=== PATIENT | male | born 1955 | race Caucasian/White ===

== ENCOUNTER 2018-11-17 08:40 | Inpatient (IN) | payer OTHER ==
--- OUTSIDE RECORDS SUMMARY | 2018-11-17 08:41 | XMS REPORT | Clinical Summary ---
:1955 Author Organization [facility] Address [address] [place] [address] Care Team Providers Name Role Phone Jorden Cohen MD Primary Care Provider Allergies Active Allergy Reactions Severity Noted Date Comments Iodine Rash Low 08/17/2016 Around age 20 I had welps from Iodine, but have had many tests done since then with no reaction to Iodine. Penicillins Rash Medium 08/17/2016 Medications Medication Sig Dispensed Refills Start Date End Date Status furosemide (LASIX) 20 mg Take 20 mg by 0 Active tablet mouth 2 (two) times a day. levothyroxine Take 25 mcg by 0 Active (SYNTHROID, LEVOXYL) 25 mouth every mcg tablet morning. spironolactone Take 25 mg by 0 Active (ALDACTONE) 25 MG tablet mouth daily. glimepiride (AMARYL) 2 Take 2 mg by 0 Active MG tablet mouth daily before breakfast. simvastatin (ZOCOR) 20 Take 20 mg by 0 Active MG tablet mouth nightly. tamsulosin (FLOMAX) 0.4 Take 0.4 mg by 0 Active mg capsule,extended mouth 2 (two) release 24hr times a day. aspirin (ECOTRIN) 81 MG Take 81 mg by 0 Active enteric coated tablet mouth daily. DOCOSAHEXANOIC ACID/EPA Take 1,200 mg by 0 Active (FISH OIL ORAL) mouth daily. insulin GLARGINE Inject 40 Units 0 Active (LANTUS) 100 unit/mL under the skin injection (vial) nightly. MILK THISTLE ORAL Take 1 tablet by 0 Active mouth daily. Active Problems Not on file Social History Tobacco Use Types Packs/Day Years Used Date Never Assessed Sex Assigned at Date Recorded Not on file Job Start Date Occupation Industry Not on file Not on file Not on file Travel History Travel Start Travel End No recent travel history available. Last Filed Vital Signs Not on file Plan of Treatment Health Maintenance Due Date Last Done Comments COLONOSCOPY SCREENING 01/23/2006 SHINGLES VACCINES (#1) 01/23/2006 INFLUENZA VACCINE 10/24/2018 Results Not on fileafter 11/16/2017 Advance Directives For more information, please contact: [phone] Type Date Recorded Patient Dip Filler Explanation Advance Directives, Living 08/23/2016 8:10 AM Does not have AD Will and Medical Power of Windows Server Administrator
[2018-11-17] MEDS ORDERED: NA CHLORIDE 0.9% 1,000 ML ONE (08:54)
[2018-11-17] MEDS ORDERED: ASPIRIN 81 MG CHEWABLE TABLET ONE (09:12)
[2018-11-17] MEDS ORDERED: ONDANSETRON 4 MG/2 ML VIAL ONE (09:13)
[2018-11-17] MEDS ORDERED: ENOXAPARIN 100 MG/ML SYR SQ ONE (09:13)
[2018-11-17] MEDS ORDERED: MORPHINE 4 MG/ML SYR ONE (09:13)
[2018-11-17] MEDS ORDERED: METOPROLOL TAR 25 MG TAB ONE (09:13)
--- NOTE | 2018-11-17 09:13 | ER ---
Nurse's Notes [facility] Name: Ovidio Johnston Age: 63 yrs Sex: Male : 1955 Arrival Date: 11/17/2018 Time: 08:41 Bed 17 Private MD: Jorden Cohen R Diagnosis: Chest pain, unspecified;Essential (primary) hypertension;Type 2 diabetes mellitus;Tobacco abuse counseling;Tobacco use;Alcohol abuse, uncomplicated Presentation: 11/17 08:49 Presenting complaint: Patient states: chest pain that began at 0630 this morning. ss Transition of care: patient was not received from another setting of care. Onset of symptoms was November 17, 2018. Risk Assessment: Do you want to hurt yourself or someone else? Patient reports no desire to harm self or others. Initial Sepsis Screen: Does the patient meet any 2 criteria? No. Patient's initial sepsis screen is negative. Does the patient have a suspected source of infection? No. Patient's initial sepsis screen is negative. Care prior to arrival: None. 08:49 Method Of Arrival: Ambulatory ss 08:49 Acuity: LIT 3 ss Historical: - Allergies: 08:56 PENICILLINS; ss - Home Meds: 08:56 levothyroxine 25 mcg tab 1 tab once daily [Active]; simvastatin 20 mg Oral tab 1 tab ss once daily [Active]; spironolactone 25 mg Oral tab 1 tab once daily [Active]; furosemide 20 mg Oral tab 1 tab once daily [Active]; tamsulosin 0.4 mg oral cp24 1 cap once daily [Active]; Lantus 100 unit/mL Sub-Q soln 50 unit daily [Active]; omeprazole 20 mg Oral cpDR 1 cap once daily [Active]; - PMHx: 08:56 Hypertension; Diabetes - IDDM; High Cholesterol; ss 08:57 early stage cirrhosis; ss - Immunization history:: Adult Immunizations up to date. - Social history:: Smoking status: Patient uses tobacco products, smokes one pack cigarettes per day. - Ebola Screening: : Patient denies exposure to infectious person Patient denies travel to an Ebola-affected area in the 21 days before illness onset. - Family history:: not pertinent. Screenin:39 Abuse screen: Denies threats or abuse. Denies injuries from another. Nutritional ss screening: No deficits noted. Tuberculosis screening: Never had TB. Fall Risk None identified. Assessment: 09:15 General: Appears in no apparent distress. comfortable, Behavior is calm, cooperative, em Denies fever. Pain: Complains of pain in anterior aspect of left upper chest Pain radiates to left arm Pain currently is 8 out of 10 on a pain scale. Quality of pain is described as dull, Pain began 2 hours ago. Neuro: Level of Consciousness is awake, alert, obeys commands, Oriented to person, place, time, situation. Cardiovascular: Reports chest pain, shortness of breath, Heart tones S1 S2 present Capillary refill < 3 seconds Patient's skin is warm and dry. Rhythm is sinus rhythm. Respiratory: Reports shortness of breath at rest Airway is patent Respiratory effort is even, unlabored, Respiratory pattern is regular, symmetrical, Breath sounds are clear bilaterally. GI: Patient currently denies nausea, vomiting. Derm: Skin is intact, is healthy with good turgor, Skin is pink, warm \T\ dry. Musculoskeletal: Capillary refill < 3 seconds, Range of motion: intact in all extremities. 09:20 General: The previous assessment is accurate, call light remains within reach. . ss 09:38 Reassessment: Dr. Herndon notified of critical lab value. Glucose 478. ss 10:14 Reassessment: Patient appears in no apparent distress at this time. Patient and/or em family updated on plan of care and expected duration. Pain level reassessed. Patient is alert, oriented x 3, equal unlabored respirations, skin warm/dry/pink. rates pain 3/10 Patient states feeling better. 11:30 Reassessment: Patient appears in no apparent distress at this time. Patient and/or em family updated on plan of care and expected duration. Pain level reassessed. Patient is alert, oriented x 3, equal unlabored respirations, skin warm/dry/pink. pending room assignment Patient states feeling better. 12:30 Reassessment: Patient appears in no apparent distress at this time. Patient and/or em family updated on plan of care and expected duration. Pain level reassessed. Patient is alert, oriented x 3, equal unlabored respirations, skin warm/dry/pink. lunch tray given, tolerated well. 14:12 Reassessment: nurse currently unavailable for report. em Vital Signs: 08:58 BP 163 / 81; Pulse 69; Resp 17; Temp 98.1(TE); Pulse Ox 99% on R/A; Weight 95.25 kg; ss Height 5 ft. 6 in. (167.64 cm); Pain 8/10; 09:30 BP 149 / 75; Pulse 72; Resp 20; Pulse Ox 97% on R/A; Pain 8/10; em 10:38 BP 137 / 77; Pulse 61; Resp 16; Pulse Ox 95% on R/A; Pain 3/10; em 12:30 BP 154 / 89; Pulse 68; Resp 18; Pulse Ox 99% on R/A; Pain 2/10; em 14:33 BP 110 / 75; Pulse 78; Resp 18; Temp 98.2(O); Pulse Ox 97% on R/A; Pain 1/10; em 08:58 Body Mass Index 33.89 (95.25 kg, 167.64 cm) ss ED Course: 08:41 Patient arrived in ED. as 08:42 Jorden Cohen MD is Private Physician. as 08:43 Troy Herndon MD is Attending Physician. fabiana 08:52 Rudy Giron LVN is Primary Nurse. em 08:53 Triage completed. ss 08:57 Arm band placed on right wrist. ss 09:05 Initial lab(s) drawn, by me, sent to lab. EKG done, by ED staff, reviewed by Troy [email or web address] Yanick TURNER. Inserted saline lock: 20 gauge in right antecubital area, using aseptic technique. Blood collected. 09:12 Jorden Cohen MD is Hospitalizing Provider. fabiana 09:39 Patient has correct armband on for positive identification. Placed in gown. Bed in low ss position. Call light in reach. Side rails up X 1. monitoring and evaluation advisor on. Pulse ox on. NIBP on. 09:39 Patient maintains SpO2 saturation greater than 95% on room air. ss 14:32 No provider procedures requiring assistance completed. Patient admitted, IV remains in em place. Administered Medications: 09:28 Drug: Aspirin 162 mg Route: PO; ss 10:06 Follow up: Response: No adverse reaction em 09:28 Drug: Lopressor (metoprolol TARTRATE) 50 mg Route: PO; ss 10:11 Follow up: Response: No adverse reaction em 09:30 Drug: NS 0.9% 1000 ml Route: IV; Rate: 125 ml/hr; Site: right antecubital; ss 14:34 Follow up: IV Status: Infusion continued upon admission; IV Intake: 600ml em 09:30 Drug: Zofran 4 mg Route: IVP; Site: right antecubital; ss 10:06 Follow up: Response: No adverse reaction em 09:33 Drug: morphine 4 mg Route: IVP; Site: right antecubital; ss 10:10 Follow up: Response: No adverse reaction; Marked relief of symptoms; Pain is decreased; em RASS: Alert and Calm (0) 09:36 Drug: Pepcid 20 mg Route: IVP; Site: right antecubital; ss 10:11 Follow up: Response: No adverse reaction em 09:36 Drug: Lovenox 100 mg Route: Sub-Q; Site: left lower abdomen; ss 10:06 Follow up: Response: No adverse reaction em 09:39 CANCELLED (Duplicate Order): Lovenox 1 mg/kg Sub-Q once fabiana 09:50 Drug: Insulin Regular Human 10 units {Co-Signature: contreras (Rudy Giron BANK MESSENGER).} Route: IVP; ss Site: right antecubital; 11:41 Follow up: Response: No adverse reaction; Blood pressure is lowered em 09:52 Drug: Thiamine 100 mg Route: IV; Rate: bolus; Site: right antecubital; ss 11:41 Follow up: Response: No adverse reaction em 09:58 Drug: Insulin Regular Human 10 units {Co-Signature: contreras Giron BANK MESSENGER).} Route: ss Sub-Q; Site: right lower abdomen; 11:41 Follow up: Response: No adverse reaction; Blood sugar is lowered em Point of Care Testing: Blood Glucose: 11:19 Blood Glucose: 248 mg/dL; em1 14:33 Blood Glucose: 277 mg/dL; em Ranges: Intake: 14:34 IV: 600ml; Total: 600ml. em Outcome: 09:12 Decision to Hospitalize by Provider. fabiana 14:32 Admitted to Tele accompanied by tech, family with patient, via wheelchair, room 208. em 14:32 Condition: good 14:32 Instructed on the need for admit, Demonstrated understanding of instructions. 14:34 Patient left the ED. em Signatures: Troy Herndon MD MD cha Munoz, Edgar, LVN BANK MESSENGER em Tita Keith Eric em1 Flaca Laguerre, RN RN Rudy Giron BANK MESSENGER em Corrections: (The following items were deleted from the chart) 09:39 09:38 Lovenox 1 mg/kg Sub-Q in left upper abdomen [facility]
[2018-11-17] MEDS ORDERED: FAMOTIDINE 20 MG/2 ML VIAL IV ONE (09:14)
--- NOTE | 2018-11-17 09:14 | EDPHYS ---
Physician Documentation [facility] Name: Ovidio Johnston Age: 63 yrs Sex: Male : 1955 Arrival Date: 11/17/2018 Time: 08:41 Bed 17 Private MD: Jorden Cohen R ED Physician Troy Herndon HPI: 11/17 09:09 This 63 yrs old Male presents to ER via Ambulatory with complaints of Chest fabiana Pain. 09:09 This 63 yrs old Male presents to ER via Ambulatory with complaints of Chest fabiana Pain. 09:09 The patient or guardian reports chest pain that is located primarily in the substernal fabiana area. Onset: 2 hour(s) ago. The pain radiates to the left arm. Associated signs and symptoms: The patient has no apparent associated signs or symptoms. The chest pain is described as a heaviness, a pressure. Modifying factors: The symptoms are alleviated by nothing. the symptoms are aggravated by nothing. Severity of pain: At its worst the pain was moderate in the emergency department the pain is unchanged. Historical: - Allergies: 08:56 PENICILLINS; ss - Home Meds: 08:56 levothyroxine 25 mcg tab 1 tab once daily [Active]; simvastatin 20 mg Oral tab 1 tab ss once daily [Active]; spironolactone 25 mg Oral tab 1 tab once daily [Active]; furosemide 20 mg Oral tab 1 tab once daily [Active]; tamsulosin 0.4 mg oral cp24 1 cap once daily [Active]; Lantus 100 unit/mL Sub-Q soln 50 unit daily [Active]; omeprazole 20 mg Oral cpDR 1 cap once daily [Active]; - PMHx: 08:56 Hypertension; Diabetes - IDDM; High Cholesterol; ss 08:57 early stage cirrhosis; ss - Immunization history:: Adult Immunizations up to date. - Social history:: Smoking status: Patient uses tobacco products, smokes one pack cigarettes per day. - Ebola Screening: : Patient denies exposure to infectious person Patient denies travel to an Ebola-affected area in the 21 days before illness onset. - Family history:: not pertinent. ROS: 09:09 Constitutional: Negative for fever, chills, and weight loss, Eyes: Negative for injury, fabiana pain, redness, and discharge, ENT: Negative for injury, pain, and discharge, Neck: Negative for injury, pain, and swelling, Respiratory: Negative for shortness of breath, cough, wheezing, and pleuritic chest pain, Abdomen/GI: Negative for abdominal pain, nausea, vomiting, diarrhea, and constipation, Back: Negative for injury and pain, : Negative for injury, bleeding, discharge, and swelling, MS/Extremity: Negative for injury and deformity, Skin: Negative for injury, rash, and discoloration, Neuro: Negative for headache, weakness, numbness, tingling, and seizure, Psych: Negative for depression, anxiety, suicide ideation, homicidal ideation, and hallucinations, Allergy/Immunology: Negative for hives, rash, and allergies, Endocrine: Negative for neck swelling, polydipsia, polyuria, polyphagia, and marked weight changes, Hematologic/Lymphatic: Negative for swollen nodes, abnormal bleeding, and unusual bruising. 09:09 Cardiovascular: Positive for chest pain. Exam: 09:09 Constitutional: This is a well developed, well nourished patient who is awake, alert, fabiana and in no acute distress. Head/Face: Normocephalic, atraumatic. Eyes: Pupils equal round and reactive to light, extra-ocular motions intact. Lids and lashes normal. Conjunctiva and sclera are non-icteric and not injected. Cornea within normal limits. Periorbital areas with no swelling, redness, or edema. ENT: Nares patent. No nasal discharge, no septal abnormalities noted. Tympanic membranes are normal and external auditory canals are clear. Oropharynx with no redness, swelling, or masses, exudates, or evidence of obstruction, uvula midline. Mucous membranes moist. Neck: Trachea midline, no thyromegaly or masses palpated, and no cervical lymphadenopathy. Supple, full range of motion without nuchal rigidity, or vertebral point tenderness. No Meningismus. Chest/axilla: Normal chest wall appearance and motion. Nontender with no deformity. No lesions are appreciated. Cardiovascular: Regular rate and rhythm with a normal S1 and S2. No gallops, murmurs, or rubs. Normal PMI, no JVD. No pulse deficits. Respiratory: Lungs have equal breath sounds bilaterally, clear to auscultation and percussion. No rales, rhonchi or wheezes noted. No increased work of breathing, no retractions or nasal flaring. Abdomen/GI: Soft, non-tender, with normal bowel sounds. No distension or tympany. No guarding or rebound. No evidence of tenderness throughout. Back: No spinal tenderness. No costovertebral tenderness. Full range of motion. Male : Normal genitalia with no discharge or lesions. Skin: Warm, dry with normal turgor. Normal color with no rashes, no lesions, and no evidence of cellulitis. MS/ Extremity: Pulses equal, no cyanosis. Neurovascular intact. Full, normal range of motion. Neuro: Awake and alert, GCS 15, oriented to person, place, time, and situation. Cranial nerves II-XII grossly intact. Motor strength 5/5 in all extremities. Sensory grossly intact. Cerebellar exam normal. Normal gait. Psych: Awake, alert, with orientation to person, place and time. Behavior, mood, and affect are within normal limits. Vital Signs: 08:58 BP 163 / 81; Pulse 69; Resp 17; Temp 98.1(TE); Pulse Ox 99% on R/A; Weight 95.25 kg; ss Height 5 ft. 6 in. (167.64 cm); Pain 8/10; 09:30 BP 149 / 75; Pulse 72; Resp 20; Pulse Ox 97% on R/A; Pain 8/10; em 10:38 BP 137 / 77; Pulse 61; Resp 16; Pulse Ox 95% on R/A; Pain 3/10; em 12:30 BP 154 / 89; Pulse 68; Resp 18; Pulse Ox 99% on R/A; Pain 2/10; em 14:33 BP 110 / 75; Pulse 78; Resp 18; Temp 98.2(O); Pulse Ox 97% on R/A; Pain 1/10; em 08:58 Body Mass Index 33.89 (95.25 kg, 167.64 cm) MDM: 08:43 Patient medically screened. [facility] 09:11 Data reviewed: vital signs, nurses notes, lab test result(s), EKG, radiologic studies, fabiana plain films. 11/17 08:44 Order name: Basic Metabolic Panel; Complete Time: 09:40 [facility] 11/17 08:44 Order name: CBC with Diff; Complete Time: 09:40 [facility] 11/17 08:44 Order name: LFT's; Complete Time: 09:40 [facility] 11/17 08:44 Order name: Magnesium; Complete Time: 09:40 [facility] 11/17 08:44 Order name: NT PRO-BNP; Complete Time: 09:40 [facility] 11/17 08:44 Order name: PT-INR; Complete Time: 09:40 [facility] 11/17 08:44 Order name: Troponin (emerg Dept Use Only); Complete Time: 09:40 [facility] 11/17 08:44 Order name: XRAY Chest (1 view) [facility] 11/17 08:44 Order name: Lipase; Complete Time: 09:40 [facility] 11/17 09:09 Order name: ETOH Level [facility] 11/17 11:48 Order name: RAD [facility] 11/17 12:20 Order name: Urine Dipstick--Ancillary (enter results) 11/17 08:44 Order name: EKG; Complete Time: 08:46 [facility] 11/17 08:44 Order name: Cardiac monitoring; Complete Time: 08:49 [facility] 11/17 08:44 Order name: EKG - Nurse/Tech; Complete Time: 08:49 [facility] 11/17 08:44 Order name: IV Saline Lock; Complete Time: 09:05 [facility] 11/17 08:44 Order name: Labs collected and sent; Complete Time: 09:05 [facility] 11/17 09:19 Order name: CONS Physician Consult [facility] 11/17 10:58 Order name: Diet Heart Healthy; Complete Time: 10:59 11/17 08:44 Order name: O2 Per Protocol; Complete Time: 08:49 [facility] 11/17 08:44 Order name: O2 Sat Monitoring; Complete Time: 08:49 [facility] 11/17 08:44 Order name: Urine Dipstick-Ancillary (obtain specimen); Complete Time: 13:10 [facility] Administered Medications: 09:28 Drug: Aspirin 162 mg Route: PO; ss 10:06 Follow up: Response: No adverse reaction em 09:28 Drug: Lopressor (metoprolol TARTRATE) 50 mg Route: PO; ss 10:11 Follow up: Response: No adverse reaction em 09:30 Drug: NS 0.9% 1000 ml Route: IV; Rate: 125 ml/hr; Site: right antecubital; ss 14:34 Follow up: IV Status: Infusion continued upon admission; IV Intake: 600ml em 09:30 Drug: Zofran 4 mg Route: IVP; Site: right antecubital; ss 10:06 Follow up: Response: No adverse reaction em 09:33 Drug: morphine 4 mg Route: IVP; Site: right antecubital; ss 10:10 Follow up: Response: No adverse reaction; Marked relief of symptoms; Pain is decreased; em RASS: Alert and Calm (0) 09:36 Drug: Pepcid 20 mg Route: IVP; Site: right antecubital; ss 10:11 Follow up: Response: No adverse reaction em 09:36 Drug: Lovenox 100 mg Route: Sub-Q; Site: left lower abdomen; ss 10:06 Follow up: Response: No adverse reaction em 09:39 CANCELLED (Duplicate Order): Lovenox 1 mg/kg Sub-Q once fabiana 09:50 Drug: Insulin Regular Human 10 units {Co-Signature: em (Rudy Giron WRISTER).} Route: IVP; ss Site: right antecubital; 11:41 Follow up: Response: No adverse reaction; Blood pressure is lowered em 09:52 Drug: Thiamine 100 mg Route: IV; Rate: bolus; Site: right antecubital; ss 11:41 Follow up: Response: No adverse reaction em 09:58 Drug: Insulin Regular Human 10 units {Co-Signature: em (Rudy Giron WRISTER).} Route: ss Sub-Q; Site: right lower abdomen; 11:41 Follow up: Response: No adverse reaction; Blood sugar is lowered em Point of Care Testing: Blood Glucose: 11:19 Blood Glucose: 248 mg/dL; em1 14:33 Blood Glucose: 277 mg/dL; em Ranges: Critical Glucose Levels:Adult <50 mg/dl or >400 mg/dl <40 mg/dl or >180 mg/dl Disposition: 11/17/18 09:12 Hospitalization ordered by Jorden Cohen for Observation. Preliminary diagnosis are Chest pain, unspecified, Essential (primary) hypertension, Type 2 diabetes mellitus, Tobacco abuse counseling, Tobacco use, Alcohol abuse, uncomplicated. - Bed requested for Telemetry/MedSurg (observation). - Status is Observation. em - Condition is Fair. - Problem is new. - Symptoms have improved. UTI on Admission? No Signatures: Dispatcher [employer] Troy Martin MD MD cha Munoz, Edgar, LVN WRISTER em Flaca Laguerre RN RN Rudy RAMIREZN em Corrections: (The following items were deleted from the chart) 09:12 09:12 Hospitalization Ordered by Jorden Cohen MD for Inpatient Admission. Preliminary fabiana diagnosis is Chest pain, unspecified; Essential (primary) hypertension; Type 2 diabetes mellitus; Tobacco abuse counseling; Tobacco use. Bed requested for Telemetry/MedSurg (observation). Status is Inpatient Admission. Condition is Fair. Problem is new. Symptoms have improved. UTI on Admission? No. fabiana 09:21 09:12 11/17/2018 09:12 Hospitalization Ordered by Jorden Cohen MD for Observation. fabiana Preliminary diagnosis is Chest pain, unspecified; Essential (primary) hypertension; Type 2 diabetes mellitus; Tobacco abuse counseling; Tobacco use. Bed requested for Telemetry/MedSurg (observation). Status is Observation. Condition is Fair. Problem is new. Symptoms have improved. UTI on Admission? No. fabiana 09:39 09:09 Lovenox 1 mg/kg Sub-Q once ordered. fabiana fabiana 09:39 09:39 Lovenox 1 mg/kg Sub-Q once ordered. ss fabiana 13:12 09:21 11/17/2018 09:12 Hospitalization Ordered by Jorden Cohen MD for Observation. ss Preliminary diagnosis is Chest pain, unspecified; Essential (primary) hypertension; Type 2 diabetes mellitus; Tobacco abuse counseling; Tobacco use; Alcohol abuse, uncomplicated. Bed requested for Telemetry/MedSurg (observation). Status is Observation. Condition is Fair. Problem is new. Symptoms have improved. UTI on Admission? No. fabiana 14:34 13:12 11/17/2018 09:12 Hospitalization Ordered by Jorden Cohen MD for Observation. em Preliminary diagnosis is Chest pain, unspecified; Essential (primary) hypertension; Type 2 diabetes mellitus; Tobacco abuse counseling; Tobacco use; Alcohol abuse, uncomplicated. Bed requested for Telemetry/MedSurg (observation). Status is Observation. Condition is Fair. Problem is new. Symptoms have improved. UTI on Admission? No. ss
[2018-11-17 09:19] LABS: Absolute Lymphocytes (CBC) 1.4 K/uL (0.7-4.9); Basophils % 0.5 % (0-1.3); Hematocrit 44.7 % (39.6-49.0); Lymphocytes % 20.4 % (15.3-44.8); RBC Red Blood Cell Count 4.51 M/uL (4.33-5.43)
[2018-11-17 09:20] LABS: Protime INR 0.91
[2018-11-17 09:37] LABS: ALT/SGPT 78 U/L (12-78); AST/SGOT 67 U/L (15-37); Albumin 3.3 g/dL (3.4-5.0); Alkaline Phosphatase 102 U/L (45-117); BUN Blood Urea Nitrogen 14 mg/dL (7-18); Bicarbonate 22 mmol/L (21-32); Bilirubin Direct 0.2 mg/dL (0-0.2); Bilirubin Total 0.4 mg/dL (0.2-1.0); Lipase 129 U/L (73-393); Magnesium 2.2 mg/dL (1.8-2.4); NT PRO-BNP 51 pg/mL (<125); Potassium 4.7 mmol/L (3.5-5.1); Protein, Total 7.7 g/dL (6.4-8.2); Sodium Level 133 mmol/L (136-145); Troponin (Emerg Dept Use Only) < 0.02 ng/mL (0.0-0.045)
[2018-11-17 09:38] LABS: Glucose Level 478 mg/dL (74-106)
[2018-11-17] MEDS ORDERED: INSULIN -REGULAR HUMAN 50 UNIT/0.5 ML ML ONE (09:44)
[2018-11-17] MEDS ORDERED: THIAMINE 200 MG/2 ML INJ ONE (09:46)
--- NOTE | 2018-11-17 11:44 | RAD REPORT ---
EXAM DESCRIPTION: RAD - Chest Single View - 11/17/2018 9:19 am CLINICAL HISTORY: CHEST PAIN Chest pain. COMPARISON: Chest Pa And Lat (2 Views) dated 01/21/2016; CHEST SINGLE VIEW dated 07/26/2009; CHEST PA AND LAT 2 VIEW dated 11/17/2008; CHEST PA AND LAT 2 VIEW dated 08/29/2008 FINDINGS: Portable technique limits examination quality. The lungs are grossly clear. The heart is mildly enlarged in size. No displaced fractures.
[2018-11-17] MEDS ORDERED: GLUCAGON 1 MG/VIAL IM PRN (14:58)
[2018-11-17] MEDS ORDERED: MORPHINE 4 MG/ML SYR IV PRN (14:58)
[2018-11-17] MEDS ORDERED: ONDANSETRON 4 MG/2 ML VIAL IV PRN (14:58)
[2018-11-17] MEDS ORDERED: ACETAMINOPHEN 500 MG TAB PO PRN (14:58)
[2018-11-17] MEDS ORDERED: D50W 25 GM/50 ML SYRINGE IV PRN (14:58)
[2018-11-17] MEDS: INSULIN -REGULAR HUMAN 50 UNIT/0.5 ML ML SQ SCH ×3 (15:15→20:44)
--- NOTE | 2018-11-17 16:19 | CON ---
History Of Present Illness: Mr. Johnston is 63, he has a history of coronary heart disease, 15 year s ago or more he had a cardiac cath that showed a totally occluded vessel with normal collaterals. Zaina herrera has been asymptomatic until recently. Now he is having pain. He also has a blood sugar of 478. Zaina herrera has been having the chest pain off and on for a fairly brief period of time, less than 24 hours. Zaina herrera continues to use tobacco. No illegal drugs. Occasional alcohol. Physical Examination: General: He appears to be his stated age. He is obese, alert, oriented, not in distress. Lungs: Clear. Heart: Within normal limits. Extremities: No cyanosis, clubbing, or edema. Distal pulses are normal. Outpatient Medications: Levothyroxine, simvastatin, spironolactone, furosemide, Flomax, Lantus insul in, omeprazole. He also has a history of hypertension and early onsets cirrhosis of the liver. Impression: My impression is that Mr. Johnston has chest pain of unknown cause. If his enzymes go up at all from less than 0.02, I will recommend a cardiac cath as the diagnostic test of choice. If his enzymes remain normal, I would recommend that we can let him go home and do an outpatient stress test. TAMRA/RISHI Voice ID: [id number] Report ID: [id number]
[2018-11-17] MEDS ORDERED: ESCITALOPRAM 20 MG TAB PO SCH (17:00)
[2018-11-17] MEDS ORDERED: PNEUMOCOCCAL VACCINE 0.5 ML IMVAC ONE (17:00)
--- NOTE | 2018-11-17 17:27 | EKG ---
Test Date: 2018-11-17 Test Time: 08:46:41 Risk Control Officer: BRENDA MEASUREMENT RESULTS: Intervals: Rate: 64 MT: 158 QRSD: 86 QT: 420 QTc: 433 Ponce: P: 31 MT: 158 QRS: 49 T: 9 INTERPRETIVE STATEMENTS: Normal sinus rhythm Normal ECG Compared to ECG 07/15/2005 23:04:25 No significant changes Electronically Signed On 11-17-18 17:26:41 CDT by Eulalio Diaz
[2018-11-17 19:18] LABS: Urine Appearance CLEAR; Urine Bilirubin NEGATIVE (NEG); Urine Blood NEGATIVE (NEG); Urine Color YELLOW; Urine Glucose 3+ (NEG); Urine Protein 1+ (NEG); Urine Specific Gravity >=1.030 (1.005-1.030)
[2018-11-17 19:40] LABS: Urine Microscopic Reflex ORDER UMIC
[2018-11-17 19:41] LABS: Urine Bacteria <20 /HPF (NONE SEEN); Urine Culture Reflex Order NOT NEEDED; Urine RBC <5 /HPF (NONE SEEN)
[2018-11-17] MEDS: TAMSULOSIN 0.4 MG SR CAP PO SCH (20:43)
[2018-11-17] MEDS: METOPROLOL TAR 50 MG TAB PO SCH (20:43)
[2018-11-17] MEDS ORDERED: HOME MED 1 EA UNK (Simvastatin [Simvastatin] 20 MG) PO SCH (21:00)
[2018-11-17] MEDS ORDERED: ENOXAPARIN 100 MG/ML SYR SQ SCH (21:00)
[2018-11-17] MEDS ORDERED: FAMOTIDINE 20 MG/2 ML VIAL IV SCH (21:00)
[2018-11-17] MEDS ORDERED: ATORVASTATIN 10 MG TAB PO SCH (21:00)
[2018-11-18 06:21] LABS: Absolute Lymphocytes (CBC) 2.5 K/uL (0.7-4.9); Basophils % 0.6 % (0-1.3); Hematocrit 45.7 % (39.6-49.0); Lymphocytes % 28.2 % (15.3-44.8); MPV 8.8 fL (7.6-11.3)
[2018-11-18] MEDS: LEVOTHYROXINE SOD 0.025 MG TAB PO SCH (06:30)
[2018-11-18 06:35] LABS: BUN Blood Urea Nitrogen 11 mg/dL (7-18); Bicarbonate 26 mmol/L (21-32); Glucose Level 187 mg/dL (74-106); Potassium 4.6 mmol/L (3.5-5.1); Sodium Level 135 mmol/L (136-145)
[2018-11-18] MEDS: INSULIN -REGULAR HUMAN 50 UNIT/0.5 ML ML SQ SCH ×4 (07:30→21:21)
[2018-11-18] MEDS: chlordiazePOXIDE HCl 25 MG CAP PO SCH ×4 (07:30→21:21)
--- NOTE | 2018-11-18 08:05 | HP ---
Date of Admission: 11/17/2018 Chief Complaint: Chest pain. History Of Present Illness: A 63-year-old male who is known to have coronary artery disease, was bro ught to the emergency room because of chest pain in the retrosternal area. There was no history of f ever, chills, rigors, shortness of breath. No history of hemoptysis. The patient denied any history of nausea or vomiting. The patient had evaluation done and there was no evidence of acute injury pattern on the EKG. Jossy chopra, because of his risk factors and previous history, patient is admitted. Past Medical History: Positive for coronary artery disease with good collaterals, hypothyroidism, hy pertension, hyperlipidemia, insulin-requiring type 2 diabetes. Other medical problems include history of liver disease with an early cirrhosis. Family History: Diabetes, hypertension present. Personal History: The patient has history of smoking. Review of Systems: Patient denies any history of fever, chills or rigors. Physical Examination: General: Revealed 63-year-old male obese. HEENT: Otherwise negative. Neck: Supple. JVD negative. Chest: Clear. Heart: Regular. Abdomen: Soft. Extremities: No edema. Neurological: Negative. Laboratory Data: White count normal. Troponin at admission 0.64, repeat troponin 1.76. Assessment: 1.Chest pain, unstable angina. 2.Hypertension. 3.Hyperlipidemia. 4.Known coronary artery disease. 5.Early cirrhosis of the liver. 6.Hyperlipidemia. Plan: The patient has restarted his medications and he is on Lovenox. Awaiting recommendation from cardiology service. As of yesterday the recommendation was to have catheterization done if the tropo misty went up. It did go up, so very likely he is going to have repeat catheterization. LOBO/RISHI Voice ID: [id number]
[2018-11-18] MEDS: ASPIRIN EC 81 MG TAB PO SCH (09:00)
[2018-11-18] MEDS ORDERED: LEVOTHYROXINE SODIUM 25 MCG PO SCH (09:00)
[2018-11-18] MEDS: BUPROPION HCL XL 150 MG TAB PO SCH (09:00)
[2018-11-18] MEDS: ESCITALOPRAM 20 MG TAB PO SCH (09:00)
[2018-11-18] MEDS: FUROSEMIDE 20 MG TABLET PO SCH (09:00)
[2018-11-18] MEDS: SPIRONOLACTONE 25 MG TABLET PO SCH (09:00)
[2018-11-18] MEDS: METOPROLOL TAR 50 MG TAB PO SCH ×2 (09:00→21:21)
[2018-11-18] MEDS: FATTY ACIDS PO SCH (09:00)
[2018-11-18] MEDS: OMEGA PO SCH (09:00)
[2018-11-18] MEDS ORDERED: LIDOCAINE 1% MPF 30 ML VIAL ONE (15:38)
[2018-11-18] MEDS ORDERED: HEPA 1000U/500MLS 1,000 UNIT/500 ML BAG IV ONE ×2 (15:38→15:39)
[2018-11-18] MEDS ORDERED: NA CHLORIDE 0.9% 500 ML ONE ×2 (15:53→16:25)
[2018-11-18] MEDS ORDERED: FENTANYL CITR 100 MCG/2 ML ONE (15:54)
[2018-11-18] MEDS ORDERED: NA CHLORIDE 0.9% 50 ML ONE (15:54)
[2018-11-18] MEDS ORDERED: ATROPINE SULF 1 MG/10 ML SYR IV ONE (15:54)
[2018-11-18] MEDS ORDERED: MIDAZOLAM HCL 2 MG/2 ML INJ ONE ×2 (15:54→16:09)
[2018-11-18] MEDS ORDERED: NICARDIPINE HCL 25 MG/10 ML IV ONE (15:54)
[2018-11-18] MEDS ORDERED: HOME MED 1 EA UNK (Omeprazole [Prilosec] 40 MG) PO SCH (17:00)
[2018-11-18] MEDS ORDERED: PANTOPRAZOLE 40MG TABLET PO SCH (17:00)
[2018-11-18] MEDS ORDERED: ATORVASTATIN 80 MG TAB PO SCH (21:00)
[2018-11-18] MEDS: TAMSULOSIN 0.4 MG SR CAP PO SCH (21:20)
[2018-11-18] MEDS ORDERED: ACETAMINOPHEN 325 MG TABLET PO PRN (22:08)
[2018-11-18] MEDS ORDERED: NITROGLYCERIN 0.4 MG/TAB SL PRN (22:09)
[2018-11-18] MEDS ORDERED: NA CHLORIDE 0.9% 1,000 ML IV SCH (23:00)
--- NOTE | 2018-11-19 02:57 | OP ---
Surgeon: Eulalio Diaz MD Private Duty Rn: Wendy Trujillo. Procedures: Left heart catheterization with coronary and left ventricular angiography and percutaneo us coronary intervention; stent to the right coronary artery, midportion, successful. Procedure Findings: The patient has normal ejection fraction. Normal left ventricular end-diastolic pressure. Left coronary has mild diffuse plaquing. No significant stenosis. Right coronary had a 90+ percent stenosis with JORGE grade 2 flow distally. After stenting, there was less than 10% residu al stenosis and JORGE grade 3 flow. Procedure In Detail: The patient was brought to the cardiac laborer chemical processing in a fasting state, sedated wit h Versed and fentanyl. Prepared and draped in usual sterile fashion. Right radial approach was used . Tissues around the right radial artery were anesthetized with 1% lidocaine. The artery was entere d with a 21-gauge needle, cannulated with a 0.021 inch diameter guidewire and the modified Seldinger technique was used to place a 6-Czech Terumo sheath. Sheath was flushed and a radial cocktail was g iven consisting of nicardipine, heparin, and nitroglycerin. He required some fluid boluses to revers e hypotension caused by the nicardipine and nitroglycerin. We angiogram left coronary, right coronar y, and left ventricle using the TIG catheter, guided into place using a short radius J-tip Terumo Gli dewire and fluoroscopy. When the decision was made to put a stent in his right coronary, we gave Ang iomax, demonstrated activated clotting time over 400 seconds. We used an Ikari right with side holes , which cannulated the right coronary artery nicely and gave good support across the lesion with a Co ugar 0.014 inch diameter coronary guidewire. We used a 3.0 x 16 Synergy stent inflated to 16 atmosph eres. The angiographic result was excellent. No significant residual stenosis. At the end of the p rocedure, were done with balloons and wires out and then the guide catheter was removed ov er a J-wire. The sheath was flushed and removed and the arteriotomy closed with a TR Band. He recei natalie 60 mg of Effient. Estimated Blood Loss: 10 cc. Complications: None. TAMRA/MODL Voice ID: [id number] Report ID: [id number]
[2018-11-19] MEDS: LEVOTHYROXINE SOD 0.025 MG TAB PO SCH (05:35)
[2018-11-19 06:02] LABS: Hematocrit 43.4 % (39.6-49.0); RBC Red Blood Cell Count 4.39 M/uL (4.33-5.43)
[2018-11-19 06:13] LABS: BUN Blood Urea Nitrogen 13 mg/dL (7-18); Bicarbonate 28 mmol/L (21-32); Glucose Level 253 mg/dL (74-106); Potassium 4.2 mmol/L (3.5-5.1); Sodium Level 137 mmol/L (136-145)
[2018-11-19] MEDS: FATTY ACIDS PO SCH (09:00)
[2018-11-19] MEDS ORDERED: CLOPIDOGREL 75 MG TABLET PO SCH (09:00)
[2018-11-19] MEDS: OMEGA PO SCH (09:00)
[2018-11-19] MEDS: INSULIN -REGULAR HUMAN 50 UNIT/0.5 ML ML SQ SCH (09:00)
[2018-11-19] MEDS: METOPROLOL TAR 50 MG TAB PO SCH (09:01)
[2018-11-19] MEDS: BUPROPION HCL XL 150 MG TAB PO SCH (09:01)
[2018-11-19] MEDS: ASPIRIN EC 81 MG TAB PO SCH (09:01)
[2018-11-19] MEDS: ESCITALOPRAM 20 MG TAB PO SCH (09:02)
[2018-11-19] MEDS: SPIRONOLACTONE 25 MG TABLET PO SCH (09:02)
[2018-11-19] MEDS: chlordiazePOXIDE HCl 25 MG CAP PO SCH (09:02)
[2018-11-19] MEDS: FUROSEMIDE 20 MG TABLET PO SCH (09:02)
--- NOTE | 2018-11-19 10:36 | PN ---
Date of Progress Note: 11/19/2018 Mr. Johnston was admitted to Dr. Cohen's service on 11/17/2018 with non-ST elevation myocardial infa rction. He had history of an occlusion of the blood vessel in the past. His troponin was 0.64. Yes terday, Dr. Diaz performed a left heart catheterization on him with a stent. Overnight, he had no complaints. Entry site of the catheterization appeared to be intact without hematoma with good distal pulses. Telemetry showed no significant changes. He has no edema. Chest is clear. No complaint. He will be discharged home today on aspirin, Plavix, statin and a beta-melissa, and will see us in t he office in the next 2 weeks. ELAINE/RISHI Voice ID: [id number] Report ID: [id number]
== END 2018-11-19 09:34 | disposition home or self-care (01) | DRG 247 ==
LOC: ER 08:40 → ERHOLD 09:14 → 2ND 14:28 → OBSVTOIN 11-18 08:06
PROVIDERS: ADMIT Internal Medicine; ATTEND Internal Medicine
PROC: 027034Z Dilation of Coronary Artery, One Artery with Drug-eluting Intraluminal Device, Percutaneous Approach (ICD-10-PCS; principal; 2018-11-18)
PROC: 4A023N7 Measurement of Cardiac Sampling and Pressure, Left Heart, Percutaneous Approach (ICD-10-PCS; 2018-11-18)
PROC: B205YZZ Plain Radiography of Left Heart using Other Contrast (ICD-10-PCS; 2018-11-18)
PROC: B201YZZ Plain Radiography of Multiple Coronary Arteries using Other Contrast (ICD-10-PCS; 2018-11-18)
DX: I21.4 Non-ST elevation (NSTEMI) myocardial infarction (principal); I25.110 Atherosclerotic heart disease of native coronary artery with unstable angina pectoris; K74.60 Unspecified cirrhosis of liver; E78.5 Hyperlipidemia, unspecified; E66.9 Obesity, unspecified; Z68.33 Body mass index [BMI] 33.0-33.9, adult; Z23 Encounter for immunization; E03.9 Hypothyroidism, unspecified; E11.9 Type 2 diabetes mellitus without complications; I10 Essential (primary) hypertension
CPT/HCPCS: 36415; 71045; 80048; 80076; 80320; 81003; 81015; 82962; 83690; 83735; 83880; 84484; 85025; 85027; 85347; 85610; 90471; 90670; 93005; 93458; 96361; 96372; 96374; 96375; 99285; C1725; C1893; C9600; G0378; J0583; J1644; J1650; J2250; J2405; J3010; J3411; J7030

== ENCOUNTER 2019-02-13 07:27 | Day surgery (SDC) | payer OTHER ==
[2019-02-05 11:47] LABS: Hematocrit 47.5 % (39.6-49.0); Lymphocytes % 25.3 % (15.3-44.8); MPV 8.5 fL (7.6-11.3); RBC Red Blood Cell Count 4.71 M/uL (4.33-5.43)
[2019-02-05 11:51] LABS: Protime INR 1.02
[2019-02-05 12:04] LABS: Potassium 4.4 mmol/L (3.5-5.1)
[2019-02-13] MEDS ORDERED: NA CHLORIDE 0.9% 500 ML ONE (08:04)
[2019-02-13] MEDS ORDERED: ATROPINE SULF 1 MG/10 ML SYR IV ONE (10:13)
[2019-02-13] MEDS ORDERED: FENTANYL CITR 100 MCG/2 ML ONE ×2 (10:13→15:16)
[2019-02-13] MEDS ORDERED: LIDOCAINE 1% MPF 30 ML VIAL ONE (10:13)
[2019-02-13] MEDS ORDERED: HEPA 1000U/500MLS 1,000 UNIT/500 ML BAG IV ONE (10:13)
[2019-02-13] MEDS ORDERED: MIDAZOLAM HCL 2 MG/2 ML INJ ONE ×3 (10:13→11:01)
[2019-02-13] MEDS ORDERED: NA CHLORIDE 0.9% 50 ML ONE (10:14)
[2019-02-13] MEDS ORDERED: NITROGLYCERIN 100 MCG/ML SYR (for cath lab use only) IV ONE (10:14)
[2019-02-13] MEDS ORDERED: NITROGLYCERIN/D5W 25 MG/250 ML BTL IV ONE (10:14)
[2019-02-13 16:46] VITALS: BP 143/91; TEMP 97.9; O2SAT 97
--- NOTE | 2019-02-13 23:53 | OP ---
Date of Procedure: 02/13/2019 Surgeon: Eliecer Clement MD Fuse Coiler: Ms. Jessica Trujillo. The patient will remain in the hospital for about 46 hours for observation, then he can go home. I s hared the pictures with the and discussed the case in detail. Reason For Admission: Left heart catheterization with selective coronary arteriogram. Procedures: Left heart catheterization, selective coronary arteriogram, and a failed angioplasty of the circumflex secondary to inability to cross with the balloon. Indication: Chest pain, coronary artery disease, unstable angina. Description Of Procedure: The patient is 64, has had a stent of the mid LAD, mid RCA, has known sign ificant stenosis in the circumflex, but it is a nondominant vessel and has been treated medically. C verna in with chest pain, admitted to the laborer cutting tool as an outpatient, prepped and draped in routine ster ile fashion. A 6-Irish sheath introduced in the right common femoral artery successfully. Angio-Se al was used to close the case. A 6-Irish Jaylene catheter was used to do the coronary angiography. He had about a 20% to 30% in-stent restenosis in the RCA. He had about 30% to 40% in-stent restenos is in the proximal LAD. He had about a 90% circumflex lesion in mid vessel, non-dominant. I decided to try to angioplasty the circumflex only because of the symptoms. An XB 3.5 guide with side hole w as used to cannulate the left main. A Langley wire 0.014 extra-support exchange length was used to cr oss the lesion successfully. I initially tried to do a stent with a 2.25 x 20 Synergy kit nt, but that could not cross . I tried up another 3.0 balloon x 16 Emerge, I could not microsoft application developer ss with that balloon either. The next step was to use a 1.5 x 20 balloon that did not cross the ____ either. I tried a short 2.5 x 8 balloon that would not cross the lesion either. I aborted th e procedure with an unsuccessful angioplasty of the circumflex because I could not cross with the bal loon. There were no complications. Blood Loss: 5 mL. Final Diagnosis: Moderate coronary artery disease. Plan: Plan is for medical therapy. I am going to put him on Ranexa 500 mg b.i.d. and change his sta tin to because he cannot tolerate statin. Anesthesia: Total conscious sedation was 45 minutes. AURELIANO Voice ID: [id number] Report ID: [id number]
== END 2019-02-13 16:43 | disposition home health service (06) ==
LOC: CCL 07:27
PROC: 02703ZZ Dilation of Coronary Artery, One Artery, Percutaneous Approach (ICD-10-PCS; principal; 2019-02-13)
DX: I25.110 Atherosclerotic heart disease of native coronary artery with unstable angina pectoris (principal); T82.855A Stenosis of coronary artery stent, initial encounter; I10 Essential (primary) hypertension; I25.2 Old myocardial infarction; E78.5 Hyperlipidemia, unspecified; E11.9 Type 2 diabetes mellitus without complications; Z95.5 Presence of coronary angioplasty implant and graft; Z79.02 Long term (current) use of antithrombotics/antiplatelets; Z79.82 Long term (current) use of aspirin; Z79.4 Long term (current) use of insulin; Z87.891 Personal history of nicotine dependence; Z88.0 Allergy status to penicillin
CPT/HCPCS: 92920; 85025; 80048; 36415; 85610; 82947 ×2; 85347 ×3; 85730; 93454; C1893; J2250 ×3; J3010 ×2; J0583; J7040

== ENCOUNTER 2019-02-21 13:36 | Emergency (ER) | payer OTHER ==
--- NOTE | 2019-02-21 15:41 | ER ---
Nurse's Notes [facility] Name: Ovidio Johnston Age: 64 yrs Sex: Male : 1955 Arrival Date: 02/21/2019 Time: 13:38 Bed 18 Private MD: Diagnosis: Encounter for evaluation of surgical site Presentation: 02/21 13:51 Presenting complaint: Pt had cardiac cath 02/[address] Clement, reports right groin hb pain, swelling, and bruising upon waking today. Transition of care: patient was not received from another setting of care. Onset of symptoms was February 21, 2019. Risk Assessment: Do you want to hurt yourself or someone else? Patient reports no desire to harm self or others. Care prior to arrival: None. 13:51 Method Of Arrival: Ambulatory hb 13:51 Acuity: LIT 3 hb 14:50 Initial Sepsis Screen: Does the patient meet any 2 criteria? No. Patient's initial em sepsis screen is negative. Does the patient have a suspected source of infection? No. Patient's initial sepsis screen is negative. Historical: - Allergies: 13:54 PENICILLINS; hb - Home Meds: 13:54 furosemide 20 mg Oral tab 1 tab once daily [Active]; Lantus 100 unit/mL Sub-Q soln 50 hb unit daily [Active]; levothyroxine 25 mcg tab 1 tab once daily [Active]; omeprazole 20 mg Oral cpDR 1 cap once daily [Active]; simvastatin 20 mg Oral tab 1 tab once daily [Active]; spironolactone 25 mg Oral tab 1 tab once daily [Active]; tamsulosin 0.4 mg Oral cp24 1 cap once daily [Active]; 13:55 Plavix 75 mg Oral tab 1 tab once daily [Active]; hb - PMHx: 13:54 Diabetes - IDDM; early stage cirrhosis; High Cholesterol; Hypertension; hb - Immunization history:: Adult Immunizations up to date. - Social history:: Smoking status: Patient uses tobacco products, smokes one-half pack cigarettes per day. - Ebola Screening: : No symptoms or risks identified at this time. Screenin:50 Abuse screen: Denies threats or abuse. Nutritional screening: No deficits noted. em Tuberculosis screening: No symptoms or risk factors identified. Fall Risk None identified. Assessment: 15:12 General: Appears in no apparent distress. comfortable, Behavior is calm, cooperative, em Denies fever. Pain: Complains of pain in right femoral area Pain currently is 4 out of 10 on a pain scale. Pain began this morning. Neuro: Level of Consciousness is awake, alert, obeys commands, Oriented to person, place, time, situation, Appropriate for age. Cardiovascular: Denies chest pain, palpitations, shortness of breath, Capillary refill < 3 seconds Patient's skin is warm and dry. Respiratory: Airway is patent Respiratory effort is even, unlabored, Respiratory pattern is regular, symmetrical. GI: Abdomen is flat, Patient currently denies nausea, vomiting. Derm: Skin is intact, is healthy with good turgor, Skin is pink, warm \T\ dry. Wound noted Wound is hematoma Bruising that is dark purple, on right femoral area. Musculoskeletal: Capillary refill < 3 seconds, Range of motion: intact in all extremities. 15:15 Reassessment: I agree with previous assessment. hb 15:21 Reassessment: US at bedside. em Vital Signs: 13:52 BP 156 / 102; Pulse 80; Resp 16; Temp 98.1; Pulse Ox 100% on R/A; Weight 97.07 kg; hb Height 5 ft. 6 in. (167.64 cm); Pain 4/10; 15:51 BP 148 / 95; Pulse 75; Resp 18; Pulse Ox 100% on R/A; em 13:52 Body Mass Index 34.54 (97.07 kg, 167.64 cm) hb ED Course: 13:38 Patient arrived in ED. cl3 13:52 Triage completed. hb 13:52 Arm band placed on. hb 14:41 Rudy Giron LVN is Primary Nurse. em 14:50 Patient has correct armband on for positive identification. Placed in gown. Bed in low em position. Call light in reach. Adult w/ patient. Pulse ox on. NIBP on. 14:51 Poly Cabrera FNP-C is PHCP. kb 14:51 Chepe Trevino MD is Attending Physician. kb 15:50 No provider procedures requiring assistance completed. Patient did not have IV access em during this emergency room visit. Administered Medications: No medications were administered Outcome: 15:40 Discharge ordered by . kb 15:50 Discharged to home ambulatory, with family. em 15:50 Condition: good 15:50 Discharge instructions given to patient, family, Instructed on discharge instructions, follow up and referral plans. Demonstrated understanding of instructions, follow-up care. 15:51 Patient left the ED. em Signatures: Poly Cabrera, CHUCK BONER-C CHUCK BONER-Rudy Gregory, NAVAL ARCHITECT SPECIALIST NAVAL ARCHITECT SPECIALIST em Shakila Ramirez, RN RN Esteban Lopez cl3
--- NOTE | 2019-02-21 15:42 | EDPHYS ---
Physician Documentation [facility] Name: Ovidio Johnston Age: 64 yrs Sex: Male : 1955 Arrival Date: 02/21/2019 Time: 13:38 Bed 18 Private MD: ED Physician Chepe Trevino HPI: 02/21 15:38 This 64 yrs old Male presents to ER via Ambulatory with complaints of Groin kb Pain. 15:38 The patient has not experienced similar symptoms in the past. The patient has not kb recently seen a physician. 15:38 The patient presents with bruising. The complaints affect the right femoral area. kb Context: resulted from cardiac catheterization, the patient can fully bear weight, the patient is able to ambulate. Onset: The symptoms/episode began/occurred this morning. Modifying factors: The symptoms are alleviated by nothing. the symptoms are aggravated by nothing. Associated signs and symptoms: The patient has no apparent associated signs or symptoms. Treatment prior to arrival includes: no previous treatment. Severity of symptoms: At their worst the symptoms were mild, moderate, in the emergency department the symptoms are unchanged. Pt reports he has a cardiac cath on 02/13/19. States everything has been fine, but he noticed bruising to area medial to insertion site this morning. Denies pain. . Historical: - Allergies: 13:54 PENICILLINS; hb - Home Meds: 13:54 furosemide 20 mg Oral tab 1 tab once daily [Active]; Lantus 100 unit/mL Sub-Q soln 50 hb unit daily [Active]; levothyroxine 25 mcg tab 1 tab once daily [Active]; omeprazole 20 mg Oral cpDR 1 cap once daily [Active]; simvastatin 20 mg Oral tab 1 tab once daily [Active]; spironolactone 25 mg Oral tab 1 tab once daily [Active]; tamsulosin 0.4 mg Oral cp24 1 cap once daily [Active]; 13:55 Plavix 75 mg Oral tab 1 tab once daily [Active]; hb - PMHx: 13:54 Diabetes - IDDM; early stage cirrhosis; High Cholesterol; Hypertension; hb - Immunization history:: Adult Immunizations up to date. - Social history:: Smoking status: Patient uses tobacco products, smokes one-half pack cigarettes per day. - Ebola Screening: : No symptoms or risks identified at this time. ROS: 15:36 Constitutional: Negative for fever, chills, and weight loss, ENT: Negative for injury, kb pain, and discharge, Neck: Negative for injury, pain, and swelling, Cardiovascular: Negative for chest pain, palpitations, and edema, Respiratory: Negative for shortness of breath, cough, wheezing, and pleuritic chest pain, Abdomen/GI: Negative for abdominal pain, nausea, vomiting, diarrhea, and constipation, MS/Extremity: Negative for injury and deformity, Neuro: Negative for headache, weakness, numbness, tingling, and seizure. 15:36 Skin: Positive for ecchymosis, of the right femoral area. Exam: 15:36 Constitutional: This is a well developed, well nourished patient who is awake, alert, kb and in no acute distress. Head/Face: Normocephalic, atraumatic. Neck: Trachea midline, no thyromegaly or masses palpated, and no cervical lymphadenopathy. Supple, full range of motion without nuchal rigidity, or vertebral point tenderness. No Meningismus. Chest/axilla: Normal chest wall appearance and motion. Nontender with no deformity. No lesions are appreciated. Cardiovascular: Regular rate and rhythm with a normal S1 and S2. No gallops, murmurs, or rubs. Normal PMI, no JVD. No pulse deficits. Respiratory: Lungs have equal breath sounds bilaterally, clear to auscultation and percussion. No rales, rhonchi or wheezes noted. No increased work of breathing, no retractions or nasal flaring. Abdomen/GI: Soft, non-tender, with normal bowel sounds. No distension or tympany. No guarding or rebound. No evidence of tenderness throughout. MS/ Extremity: Pulses equal, no cyanosis. Neurovascular intact. Full, normal range of motion. Neuro: Awake and alert, GCS 15, oriented to person, place, time, and situation. Cranial nerves II-XII grossly intact. Motor strength 5/5 in all extremities. Sensory grossly intact. Cerebellar exam normal. Normal gait. 15:36 Skin: Appearance: ecchymosis, noted on the, right femoral area, that are moderate, of the right femoral area. Vital Signs: 13:52 BP 156 / 102; Pulse 80; Resp 16; Temp 98.1; Pulse Ox 100% on R/A; Weight 97.07 kg; hb Height 5 ft. 6 in. (167.64 cm); Pain 4/10; 15:51 BP 148 / 95; Pulse 75; Resp 18; Pulse Ox 100% on R/A; em 13:52 Body Mass Index 34.54 (97.07 kg, 167.64 cm) hb MDM: 14:51 Patient medically screened. kb 15:36 Data reviewed: vital signs, nurses notes. Data interpreted: Pulse oximetry: on room air kb is 100 %. Interpretation: normal. Counseling: I had a detailed discussion with the patient and/or guardian regarding: the historical points, exam findings, and any diagnostic results supporting the discharge/admit diagnosis, radiology results, the need for outpatient follow up, a family practitioner, to return to the emergency department if symptoms worsen or persist or if there are any questions or concerns that arise at home. 02/21 14:51 Order name: US Extremity Venous Unilateral Ltd kb Administered Medications: No medications were administered Disposition: 02/21/19 15:40 Discharged to Home. Impression: Encounter for evaluation of surgical site. - Condition is Stable. - Discharge Instructions: Nonspecific Chest Pain, [id number]. - Medication Reconciliation Form, Thank You Letter, Antibiotic Education, Prescription Opioid Use form. - Follow up: Emergency Department; When: As needed; Reason: Worsening of condition. Follow up: Private Physician; When: 2 - 3 days; Reason: Recheck today's complaints, Continuance of care, Re-evaluation by your physician. Addendum: 02/24/2019 10:12 Co-signature as Attending Physician, Chepe Trevino MD I agree with the assessment and k dr plan of care. Signatures: Dispatcher [employer] EDPoly Martinez, SERGING MACHINE OPERATOR AUTOMATIC-C SERGING MACHINE OPERATOR AUTOMATIC-Ckb Chepe Trevino MD MD [facility] Rudy Giron, ELECTRONICS SPECIALIST ELECTRONICS SPECIALIST em Shakila Ramirez, RN RN Corrections: (The following items were deleted from the chart) 02/21 15:51 15:40 02/21/2019 15:40 Discharged to Home. Impression: Encounter for evaluation of em surgical site. Condition is Stable. Forms are Medication Reconciliation Form, Thank You Letter, Antibiotic Education, Prescription Opioid Use. Follow up: Emergency Department; When: As needed; Reason: Worsening of condition. Follow up: Private Physician; When: 2 - 3 days; Reason: Recheck today's complaints, Continuance of care, Re-evaluation by your physician. kb
--- NOTE | 2019-02-21 15:50 | RAD REPORT ---
EXAM DESCRIPTION: US - Extremity Venous Uni Ltd - 02/21/2019 3:41 pm CLINICAL HISTORY: Right leg pain, cardiac catheterization February 13 with right groin pain and brui sing COMPARISON: None. TECHNIQUE: Real-time sonographic evaluation of the right lower extremity deep venous systems was per formed. FINDINGS: Normal compressibility, flow augmentation, phasic flow and spontaneous flow are identified in the right lower extremity common femoral, superficial femoral, popliteal and posterior tibial vei ns. No intraluminal filling defects seen. In the right groin area of pain, a benign lymph node is seen. There is no pseudoaneurysm, hematoma or other suspicious finding. IMPRESSION: No DVT in the right lower extremity. No pseudoaneurysm, hematoma or other abnormality at the right groin area of pain.
[2019-02-21 20:54] VITALS: TEMP 98.1; O2SAT 100
[2019-02-21 20:56] VITALS: BP 148/95
== END 2019-02-21 15:51 | disposition home or self-care (01) ==
LOC: ER 13:36
DX: Z48.89 Encounter for other specified surgical aftercare (principal); I10 Essential (primary) hypertension; E11.9 Type 2 diabetes mellitus without complications; E78.00 Pure hypercholesterolemia, unspecified; K74.60 Unspecified cirrhosis of liver; Z79.4 Long term (current) use of insulin; Z79.01 Long term (current) use of anticoagulants
CPT/HCPCS: 93971; 99283